=== PATIENT | male | born 1960 | race Caucasian/White ===

== ENCOUNTER 2022-03-11 20:55 | Emergency (ER) | payer OTHER ==
[~2022-03-11] VITALS: Ht 177.8 cm; Wt 86.2 kg
[2022-03-11] MEDS ORDERED: FLOMAX0.4 MG PO (22:40)
== END 2022-03-11 23:15 | disposition home or self-care (01) ==
LOC: ED 20:55
DX: N13.2 Hydronephrosis with renal and ureteral calculous obstruction (principal); I10 Essential (primary) hypertension
CPT/HCPCS: 36415; 74176; 80053; 81001; 83690; 85025; 96374; 99284-25; A9270; J1885; J7121